=== PATIENT | female | born 1975 | race Caucasian/White ===

== ENCOUNTER 2021-06-11 16:17 | Emergency (ER) | payer MEDICARE ==
[2021-06-11 17:36] LABS: BASOPHIL 0.3 % (0-2); EOSINOPHIL 0.4 % (0-5); HCT 42.2 % (37.0-47.0); HGB 14.4 g/dl (12.5-16.0); LYMPHOCYTE 24.7 % (15-48); MCH 33.1 pg (25.0-31.0); MCHC 34.1 g/dL (32.0-36.0); MONOCYTE 6.6 % (0-12); MPV 9.4 fL (6.0-9.5); NEUTROPHIL 67.7 % (41-80); NRBC 0; PLT 173 K/uL (150-400); RBC 4.35 M/uL (4.20-5.40); RDW 13.3 % (11.5-14.0); WBC 9.9 K/uL (4.0-10.5)
[2021-06-11 17:52] LABS: BUN/CREAT RATIO (CALC) 6.5 RATIO; CREATININE 0.62 mg/dL (0.51-0.95); POTASSIUM 3.3 mmol/L (3.5-5.1)
[2021-06-11 18:06] LABS: CKMB 2.6 ng/mL (0.0-3.6)
== END 2021-06-11 19:10 | disposition home or self-care (01) ==
LOC: FER 16:17
PROVIDERS: Emergency Medicine
DX: F41.1 Generalized anxiety disorder (principal); E78.5 Hyperlipidemia, unspecified; I10 Essential (primary) hypertension; Z90.49 Acquired absence of other specified parts of digestive tract; F17.210 Nicotine dependence, cigarettes, uncomplicated; Z88.8 Allergy status to other drugs, medicaments and biological substances
CPT/HCPCS: 36415; 70450; 80048; 82553; 84484; 85025; 93005

== ENCOUNTER 2021-11-27 13:23 | Inpatient (IN) | payer MEDICARE ==
[~2021-11-27] VITALS: Ht 165.1 cm; Wt 75.3 kg
[2021-11-27 14:30] LABS: BASOPHIL 0.1 % (0-2); EOSINOPHIL 0.1 % (0-5); HCT 43.1 % (37.0-47.0); HGB 14.9 g/dl (12.5-16.0); LYMPHOCYTE 4.7 % (15-48); MCH 34.7 pg (25.0-31.0); MCHC 34.6 g/dL (32.0-36.0); MCV 100.5 fL (78.0-100.0); MONOCYTE 4.4 % (0-12); MPV 9.4 fL (6.0-9.5); NRBC 0; PLT 214 K/uL (150-400); RBC 4.29 M/uL (4.20-5.40); WBC 19.2 K/uL (4.0-10.5)
[2021-11-27 14:38] LABS: NEUTROPHIL 90.3 % (41-80)
[2021-11-27 14:40] LABS: ALBUMIN 3.7 g/dL (3.4-5.0); BILIRUBIN - TOTAL 0.1 mg/dL (0.2-1.0); BUN/CREAT RATIO (CALC) 9.6 RATIO; CREATININE 0.73 mg/dL (0.51-0.95); GLOBULIN (CALCULATION) 3.1 g/dL; POTASSIUM 3.7 mmol/L (3.5-5.1); TOTAL PROTEIN 6.8 g/dL (6.4-8.2)
[2021-11-27 16:12] LABS: BILIRUBIN NEGATIVE (NEGATIVE); BLOOD 2+ Ery/uL (NEGATIVE); CLARITY CLEAR (CLEAR); COLOR YELLOW (YELLOW); GLUCOSE (U) NORMAL (NORMAL); LEUKOCYTES NEGATIVE Leu/uL (NEGATIVE); NITRITE NEGATIVE (NEGATIVE); PROTEIN 1+ mg/dL (NEGATIVE); SPECIFIC GRAVITY >=1.030 (1.001-1.030); UROBILINOGEN 0.2 mg/dL (0.2-1.0); pH 5.5 (5.0-9.0)
[2021-11-27 16:22] LABS: BACTERIA TRACE; URINARY RBC RARE; URINARY WBC RARE
[2021-11-27 16:24] LABS: LACTIC ACID 4.8 mmol/L (0.4-1.9)
[2021-11-27 17:38] LABS: CORONAVIRUS 2019 SARS-COV-2 NEGATIVE (NEGATIVE); INFLUENZA A NAA NEGATIVE (NEGATIVE)
[2021-11-27] MEDS ORDERED: LIDOCAINE 5% P1 EACH TOP (21:53)
[2021-11-27] MEDS ORDERED: HYDROCODON-ACE1 EAC6 PO (21:54)
[2021-11-27] MEDS ORDERED: BACLOFEN10 MG PO (21:54)
[2021-11-27] MEDS ORDERED: CELECOXIB100 MG PO (21:55)
[2021-11-27] MEDS ORDERED: DICLOFENAC SOD100 G1 TOP (21:56)
[2021-11-27] MEDS ORDERED: SERTRALINE HCL50 MG PO (21:56)
[2021-11-27] MEDS ORDERED: FENOFIBRATE145 MG PO (21:56)
[2021-11-28 06:20] LABS: BASOPHIL 0.1 % (0-2); EOSINOPHIL 0 % (0-5); HCT 37.6 % (37.0-47.0); HGB 12.7 g/dl (12.5-16.0); LYMPHOCYTE 9.3 % (15-48); MCH 33.4 pg (25.0-31.0); MCHC 33.8 g/dL (32.0-36.0); MCV 98.9 fL (78.0-100.0); MONOCYTE 5.9 % (0-12); MPV 9.5 fL (6.0-9.5); NRBC 0; PLT 172 K/uL (150-400); RDW 13.1 % (11.5-14.0); WBC 12.2 K/uL (4.0-10.5)
[2021-11-28 06:40] LABS: ALBUMIN 3.3 g/dL (3.4-5.0); BILIRUBIN - TOTAL 0.2 mg/dL (0.2-1.0); BUN/CREAT RATIO (CALC) 10.3 RATIO; CREATININE 0.68 mg/dL (0.51-0.95); GLOBULIN (CALCULATION) 3.3 g/dL; MAGNESIUM 2.1 mg/dL (1.8-2.4); PHOSPHORUS 1.9 mg/dL (2.6-4.7); POTASSIUM 3.7 mmol/L (3.5-5.1); TOTAL PROTEIN 6.6 g/dL (6.4-8.2)
[2021-11-29 06:25] LABS: BASOPHIL 0.2 % (0-2); EOSINOPHIL 0.1 % (0-5); HCT 35.6 % (37.0-47.0); LYMPHOCYTE 29.5 % (15-48); MCH 33.4 pg (25.0-31.0); MCHC 33.7 g/dL (32.0-36.0); MCV 99.2 fL (78.0-100.0); MONOCYTE 7.1 % (0-12); MPV 9.4 fL (6.0-9.5); NEUTROPHIL 62.9 % (41-80); NRBC 0; PLT 167 K/uL (150-400); RBC 3.59 M/uL (4.20-5.40); RDW 13.3 % (11.5-14.0); WBC 9.4 K/uL (4.0-10.5)
[2021-11-29 06:42] LABS: BUN/CREAT RATIO (CALC) 17.1 RATIO; CREATININE 0.7 mg/dL (0.51-0.95); POTASSIUM 3.3 mmol/L (3.5-5.1)
[2021-11-29] MEDS ORDERED: CEFDINIR300 MG PO (07:49)
[2021-11-29] MEDS ORDERED: VENTOLIN HFA IN18 GM INH (07:50)
[2021-11-29] MEDS ORDERED: ZITHROMAX500 MG PO (07:50)
== END 2021-11-29 10:55 | disposition home or self-care (01) | DRG 871 ==
LOC: FER 13:23 → FMS 17:49
PROVIDERS: Emergency Medicine; Nurse Practitioner; ADMIT Internal Medicine
DX: A41.9 Sepsis, unspecified organism (principal); J18.9 Pneumonia, unspecified organism; G93.41 Metabolic encephalopathy; G89.29 Other chronic pain; G35 Multiple sclerosis; T40.2X5A Adverse effect of other opioids, initial encounter; E66.9 Obesity, unspecified; E78.5 Hyperlipidemia, unspecified; F17.210 Nicotine dependence, cigarettes, uncomplicated; Z83.3 Family history of diabetes mellitus; Z88.8 Allergy status to other drugs, medicaments and biological substances; Z80.1 Family history of malignant neoplasm of trachea, bronchus and lung; Z82.49 Family history of ischemic heart disease and other diseases of the circulatory system; Z20.822 Contact with and (suspected) exposure to COVID-19; Z90.49 Acquired absence of other specified parts of digestive tract
CPT/HCPCS: 36415; 36600; 70450; 71045; 80048; 80053; 81001; 82803; 83605; 83735; 84100; 84145; 85025; 87040; 93005; 94010; 94640; 94667; 94668; 94760; J0456; J0696; J1100; J1650; J1885; J2270; J7030; J7050; U0002